=== PATIENT | male | born 1940 | race Caucasian/White ===

== ENCOUNTER 2017-06-19 18:23 | Inpatient (IN) | payer MEDICARE, OTHER ==
[~2017-06-19] VITALS: Ht 167.6 cm; Wt 122.7 kg
[2017-06-19] MEDS ORDERED: SODIUM CHLORIDE 0.9% 1,000 ML IV ONE (18:29)
[2017-06-19] MEDS ORDERED: CEFTRIAXONE PMX 1GM/50ML 50 ML IV ONE ×2 (19:00→19:06)
[2017-06-19] MEDS ORDERED: PLEASE ENTER HEIGHT AND WEIGHT MC SCH (19:00)
[2017-06-19] MEDS ORDERED: PLEASE ENTER ALLERGIES MC SCH ×2 (19:00)
[2017-06-19] MEDS ORDERED: DEXAMETHASONE 4 MG/ML, 1ML IVPush ONE (19:00)
[2017-06-19] MEDS: SODIUM CHLORIDE 0.9% 1,000 ML IV SCH (19:06)
[2017-06-19 19:18] LABS: HEMATOCRIT 35.5 % (39.2-51.8); HEMOGLOBIN 11.8 g/dL (13.7-18.0); WHITE BLOOD COUNT 27.2 x10^3/uL (3.4-10)
[2017-06-19 19:30] LABS: BLOOD UREA NITROGEN 35 mg/dL (7-18)
[2017-06-19] MEDS ORDERED: ONDANSETRON 2MG/ML, 2ML IVPush PRN (19:30)
[2017-06-19] MEDS ORDERED: ACETAMINOPHEN 325 MG TABLET PO PRN (19:30)
[2017-06-19] MEDS ORDERED: TEMAZEPAM 15 MG CAPSULE PO PRN (19:30)
[2017-06-19] MEDS ORDERED: ENALAPRILAT 1.25 MG/ML, 2ML IVPush PRN (19:30)
[2017-06-19] MEDS: CEFTRIAXONE PMX 1GM/50ML 50 ML IV SCH (19:30)
[2017-06-19 19:33] LABS: DIFF TOTAL CELLS COUNTED 100 CELL DIFF
[2017-06-19 19:35] LABS: ANISOCYTOSIS 1+; POLYCHROMASIA 1+; VERIFY COUNTS? YES
[2017-06-19 19:36] LABS: ASPARTATE AMINO TRANSFERASE 24 U/L (15-37)
[2017-06-19] MEDS ORDERED: CEFTRIAXONE PMX 1GM/50ML 50 ML ONE (19:46)
[2017-06-19] MEDS ORDERED: DEXAMETHASONE 4 MG/ML, 1ML ONE (19:46)
[2017-06-19] MEDS ORDERED: AMLO5TAB2 PO (20:04)
[2017-06-19] MEDS ORDERED: FURO-93 PO (20:04)
[2017-06-19] MEDS ORDERED: ROSU5TAB PO (20:04)
[2017-06-19] MEDS ORDERED: TELM80TA PO (20:04)
[2017-06-19] MEDS ORDERED: GLIP5TAB10 PO (20:04)
[2017-06-19] MEDS ORDERED: ALLO100T30 PO (20:04)
[2017-06-19] MEDS ORDERED: METO50TA82 PO (20:04)
[2017-06-19 20:35] VITALS: BP 143/78
[2017-06-19] MEDS: ENOXAPARIN 30 MG/0.3 ML SQ SCH (21:46)
[2017-06-19 21:48] VITALS: BP 143/78
[2017-06-19] MEDS: DEXAMETHASONE 4 MG/ML, 1ML IVPush SCH (22:35)
[2017-06-20 02:31] VITALS: BP 137/71
[2017-06-20] MEDS: SODIUM CHLORIDE 0.9% 1,000 ML IV SCH ×3 (03:08→16:30)
[2017-06-20] MEDS: DEXAMETHASONE 4 MG/ML, 1ML IVPush SCH ×4 (04:41→22:55)
[2017-06-20 05:15] LABS: HEMATOCRIT 34.1 % (39.2-51.8); HEMOGLOBIN 11.4 g/dL (13.7-18.0); WHITE BLOOD COUNT 22.2 x10^3/uL (3.4-10)
[2017-06-20 05:34] LABS: BLOOD UREA NITROGEN 41 mg/dL (7-18)
[2017-06-20] MEDS: METOPROLOL TARTRATE 50 MG TABLET PO SCH (09:00)
[2017-06-20] MEDS: ALLOPURINOL 300 MG TABLET PO SCH (09:00)
[2017-06-20] MEDS: AMLODIPINE 5 MG TABLET PO SCH (09:00)
[2017-06-20 14:00] VITALS: BP 142/73
[2017-06-20] MEDS ORDERED: ONDANSETRON 2MG/ML, 2ML IVPush PRN (16:30)
[2017-06-20] MEDS ORDERED: ENALAPRILAT 1.25 MG/ML, 2ML IVPush PRN (16:30)
[2017-06-20] MEDS ORDERED: ACETAMINOPHEN 325 MG TABLET PO PRN (16:30)
[2017-06-20] MEDS: CEFTRIAXONE PMX 1GM/50ML 50 ML IV SCH (19:57)
[2017-06-20] MEDS: ENOXAPARIN 30 MG/0.3 ML SQ SCH (19:57)
[2017-06-20 20:50] VITALS: BP 143/74
[2017-06-20] MEDS: TEMAZEPAM 15 MG CAPSULE PO PRN (22:59)
[2017-06-21 03:07] VITALS: BP 132/66
[2017-06-21] MEDS: DEXAMETHASONE 4 MG/ML, 1ML IVPush SCH ×3 (04:38→18:11)
[2017-06-21] MEDS: SODIUM CHLORIDE 0.9% 1,000 ML IV SCH ×3 (04:38→20:21)
[2017-06-21 07:40] VITALS: BP 143/73
[2017-06-21] MEDS: METOPROLOL TARTRATE 50 MG TABLET PO SCH (10:30)
[2017-06-21] MEDS: AMLODIPINE 5 MG TABLET PO SCH (10:30)
[2017-06-21] MEDS: ALLOPURINOL 300 MG TABLET PO SCH (10:30)
[2017-06-21] MEDS ORDERED: DEXTROSE 4 GM TAB.CHEW PO PRN (12:00)
[2017-06-21] MEDS ORDERED: GLUCAGON 1 MG IM PRN (12:00)
[2017-06-21] MEDS: SODIUM CHLORIDE FLUSH 10ML SYR IVF SCH ×2 (12:00→20:22)
[2017-06-21] MEDS ORDERED: DEXTROSE 50%, 50ML SYRINGE IVPush PRN (12:00)
[2017-06-21] MEDS: INSULIN ASPART 100 UNITS/ML, PEN SQ-INSULIN SCH ×3 (12:31→20:20)
[2017-06-21 13:31] VITALS: BP 133/84
[2017-06-21] MEDS: AMPICILLIN/SULBACTAM 3 GM in SODIUM CHLORIDE 0.9% 100 ML IV SCH ×2 (14:44→20:20)
[2017-06-21] MEDS: INSULIN DETEMIR 100 UNITS/ML, PEN SQ-INSULIN SCH (18:11)
[2017-06-21] MEDS: CEFTRIAXONE PMX 1GM/50ML 50 ML IV SCH (19:33)
[2017-06-21 20:11] VITALS: BP 137/71
[2017-06-21] MEDS: ENOXAPARIN 30 MG/0.3 ML SQ SCH (20:20)
[2017-06-21] MEDS: TEMAZEPAM 15 MG CAPSULE PO PRN (20:24)
[2017-06-22] MEDS: AMPICILLIN/SULBACTAM 3 GM in SODIUM CHLORIDE 0.9% 100 ML IV SCH ×4 (01:49→20:01)
[2017-06-22] MEDS: DEXAMETHASONE 4 MG/ML, 1ML IVPush SCH ×3 (02:36→18:09)
[2017-06-22 02:48] VITALS: BP 150/82
[2017-06-22 05:18] LABS: HEMATOCRIT 33.7 % (39.2-51.8); WHITE BLOOD COUNT 17.6 x10^3/uL (3.4-10)
[2017-06-22 05:27] LABS: BLOOD UREA NITROGEN 61 mg/dL (7-18)
[2017-06-22] MEDS: SODIUM CHLORIDE 0.9% 1,000 ML IV SCH ×2 (05:56→18:08)
[2017-06-22] MEDS: INSULIN ASPART 100 UNITS/ML, PEN SQ-INSULIN SCH ×4 (08:13→20:10)
[2017-06-22] MEDS: INSULIN DETEMIR 100 UNITS/ML, PEN SQ-INSULIN SCH ×2 (08:14→16:52)
[2017-06-22] MEDS: SODIUM CHLORIDE FLUSH 10ML SYR IVF SCH ×2 (08:16→20:01)
[2017-06-22] MEDS: AMLODIPINE 5 MG TABLET PO SCH (08:17)
[2017-06-22] MEDS: ALLOPURINOL 100 MG TABLET PO SCH (08:17)
[2017-06-22] MEDS: METOPROLOL TARTRATE 50 MG TABLET PO SCH (08:17)
[2017-06-22 08:18] VITALS: BP 149/74
[2017-06-22 17:57] VITALS: BP 151/80
[2017-06-22 20:00] VITALS: BP 152/77
[2017-06-22] MEDS: ENOXAPARIN 30 MG/0.3 ML SQ SCH (20:01)
[2017-06-23] MEDS: AMPICILLIN/SULBACTAM 3 GM in SODIUM CHLORIDE 0.9% 100 ML IV SCH ×4 (01:16→20:10)
[2017-06-23] MEDS: DEXAMETHASONE 4 MG/ML, 1ML IVPush SCH ×3 (01:59→22:31)
[2017-06-23 02:00] VITALS: BP 136/73
[2017-06-23] MEDS: SODIUM CHLORIDE 0.9% 1,000 ML IV SCH ×2 (03:11→11:59)
[2017-06-23 04:46] LABS: PATH.CAST-FLAG NOT PRESENT; SPERM-FLAG NOT PRESENT; SRC-FLAG NOT PRESENT; XTAL-FLAG NOT PRESENT; YLC-FLAG NOT PRESENT
[2017-06-23 05:35] LABS: HEMATOCRIT 31.3 % (39.2-51.8); HEMOGLOBIN 10.3 g/dL (13.7-18.0); WHITE BLOOD COUNT 15.5 x10^3/uL (3.4-10)
[2017-06-23 05:58] LABS: BLOOD UREA NITROGEN 61 mg/dL (7-18)
[2017-06-23] MEDS: METOPROLOL TARTRATE 50 MG TABLET PO SCH (08:33)
[2017-06-23] MEDS: AMLODIPINE 5 MG TABLET PO SCH (08:33)
[2017-06-23] MEDS: ALLOPURINOL 100 MG TABLET PO SCH (08:33)
[2017-06-23] MEDS: INSULIN DETEMIR 100 UNITS/ML, PEN SQ-INSULIN SCH ×2 (08:34→17:31)
[2017-06-23] MEDS: INSULIN ASPART 100 UNITS/ML, PEN SQ-INSULIN SCH ×4 (08:34→22:32)
[2017-06-23] MEDS: SODIUM CHLORIDE FLUSH 10ML SYR IVF SCH ×2 (08:36→22:31)
[2017-06-23 08:50] VITALS: BP 146/74
[2017-06-23 14:36] VITALS: BP 152/79
[2017-06-23 19:45] VITALS: BP 138/77
[2017-06-23] MEDS: ENOXAPARIN 30 MG/0.3 ML SQ SCH (20:10)
[2017-06-23] MEDS: TEMAZEPAM 15 MG CAPSULE PO PRN (22:40)
[2017-06-24 01:53] VITALS: BP 142/72
[2017-06-24] MEDS: AMPICILLIN/SULBACTAM 3 GM in SODIUM CHLORIDE 0.9% 100 ML IV SCH ×3 (02:21→14:09)
[2017-06-24 06:44] VITALS: BP 149/70
[2017-06-24] MEDS: ALLOPURINOL 100 MG TABLET PO SCH (09:02)
[2017-06-24] MEDS: AMLODIPINE 5 MG TABLET PO SCH (09:02)
[2017-06-24] MEDS: METOPROLOL TARTRATE 50 MG TABLET PO SCH (09:02)
[2017-06-24] MEDS: INSULIN DETEMIR 100 UNITS/ML, PEN SQ-INSULIN SCH ×2 (09:03→16:27)
[2017-06-24] MEDS: SODIUM CHLORIDE FLUSH 10ML SYR IVF SCH (09:04)
[2017-06-24] MEDS: INSULIN ASPART 100 UNITS/ML, PEN SQ-INSULIN SCH ×3 (09:04→16:26)
[2017-06-24] MEDS: DEXAMETHASONE 4 MG/ML, 1ML IVPush SCH (10:30)
[2017-06-24 14:30] VITALS: BP 158/79
[2017-06-24] MEDS ORDERED: INSU100I18 SQ-INSULIN (15:10)
[2017-06-24] MEDS ORDERED: INSU100I28 SQ-INSULIN (15:10)
[2017-06-24] MEDS ORDERED: CEFD300C37 PO (15:10)
[2017-06-24] MEDS ORDERED: ALLO100T30 PO (15:10)
== END 2017-06-24 17:12 | disposition home or self-care (01) | DRG 871 ==
LOC: SUATTDRO 19:06 → ED 19:31 → EDIP 19:45 → 3NE 20:20 → DCLOUNGE 06-24 16:50
PROVIDERS: ADMIT Internal Medicine
DX: A41.9 Sepsis, unspecified organism (principal); E43 Unspecified severe protein-calorie malnutrition; J05.10 Acute epiglottitis without obstruction; N17.9 Acute kidney failure, unspecified; E87.2 Acidosis; N18.4 Chronic kidney disease, stage 4 (severe); Z68.41 Body mass index [BMI] 40.0-44.9, adult; J02.9 Acute pharyngitis, unspecified; D63.8 Anemia in other chronic diseases classified elsewhere; E11.22 Type 2 diabetes mellitus with diabetic chronic kidney disease; E11.65 Type 2 diabetes mellitus with hyperglycemia; E66.01 Morbid (severe) obesity due to excess calories; E78.00 Pure hypercholesterolemia, unspecified; E78.5 Hyperlipidemia, unspecified; I12.9 Hypertensive chronic kidney disease with stage 1 through stage 4 chronic kidney disease, or unspecified chronic kidney disease; M10.9 Gout, unspecified; Z96.652 Presence of left artificial knee joint; Z88.6 Allergy status to analgesic agent; Z90.49 Acquired absence of other specified parts of digestive tract
CPT/HCPCS: 36415; 70490; 71010; 80048; 80053; 81001; 82947; 82962; 83036; 83605; 83735; 84145; 85025; 87040; 96361; 96374; 96375; J0295; J0696; J1100; J1650; J1815; J7030